=== PATIENT | male | born 1970 | race Caucasian/White ===

== ENCOUNTER 2019-10-16 21:03 | Emergency (ER) | payer OTHER ==
[~2019-10-16] VITALS: Ht 175.3 cm; Wt 136.0 kg
[~2019-10-16 21:03] MED LIST: ibuprofen PO
[2019-10-16 21:10] VITALS: BP 147/118
[2019-10-16] MEDS ORDERED: CefTRIAXone 1000mg IM Kit (w/lidocaine diluent) IM ONE (22:05)
[2019-10-16 22:06] LABS: CLARITY,URINE SLIGHTLY CLOUDY (Clear); COLOR,URINE YELLOW (Yellow); GLUCOSE, URINE NEGATIVE (Neg); KETONES,URINE TRACE mg/dl (Neg); LEUKOCYTE ESTERASE ,URINE SMALL (Neg); NITRITES, URINE NEGATIVE (Neg); OCCULT BLOOD,URINE MODERATE (Neg); PH,URINE 5.5 (4.8-8.0); PROTEIN,URINE 30 mg/dl (Neg)
[2019-10-16] MEDS ORDERED: FLO0.4C PO (22:08)
[2019-10-16] MEDS ORDERED: CEPH250T PO (22:08)
[2019-10-16] MEDS ORDERED: tamsulosin 0.4mg capsule PO ONE (22:10)
[2019-10-16 22:11] LABS: UA COLLECTION TYPE CLN CATCH MIDSTREAM
[2019-10-16 22:13] LABS: BACTERIA,URINE FEW /HPF (Neg); RENAL CELLS, URINE FEW /HPF; SQUAMOUS EPITHELIAL CELL,UR MODERATE /LPF (FEW); WBC CLUMPS,URINE FEW /HPF (NEGATIVE); WBC,URINE TNTC /HPF (0-4); YEAST MODERATE /HPF (NEGATIVE)
== END 2019-10-16 22:27 | disposition home or self-care (01) ==
LOC: ER 21:03
DX: N39.0 Urinary tract infection, site not specified (principal); R30.9 Painful micturition, unspecified; Z79.2 Long term (current) use of antibiotics; Z79.899 Other long term (current) drug therapy
CPT/HCPCS: 81001; 87088; 96372; 99283; J0696

== ENCOUNTER 2021-09-01 07:33 | Emergency (ER) | payer BC, OTHER ==
[~2021-09-01] VITALS: Ht 172.7 cm; Wt 143.2 kg
[2021-09-01 08:17] LABS: BASOPHILS # (AUTO) 0.1 X10'3 (0-0.2); BASOPHILS % (AUTO) 0.9 % (0-1); EOSINOPHILS # (AUTO) 0.2 X10'3 (0-0.9); EOSINOPHILS % (AUTO) 3.2 % (0-6); HEMATOCRIT 43.4 % (42.0-52.0); HEMOGLOBIN 15.1 g/dl (14.0-17.9); LYMPHOCYTES # (AUTO) 2.8 X10'3 (1.1-4.8); LYMPHOCYTES % (AUTO) 41.6 % (21-51); MEAN CORPUSCULAR HEMOGLOBIN 30.5 PG (27.0-31.0); MEAN CORPUSCULAR HGB CONC 34.8 g/dL (33.0-36.5); MEAN CORPUSCULAR VOLUME 87.6 FL (78-98); MEAN PLATELET VOLUME 8.2 FL (7.4-10.4); MONOCYTES # (AUTO) 0.8 X10'3 (0-0.9); MONOCYTES % (AUTO) 12.2 % (2-12); NEUTROPHILS # (AUTO) 2.8 X10'3 (1.8-7.7); NEUTROPHILS % (AUTO) 42.1 % (42-75); PLATELET COUNT 254 X10'3 (140-440); RED BLOOD COUNT 4.95 X10'6 (4.70-6.10); RED CELL DISTRIBUTION WIDTH 13.3 % (11.5-14.5); WHITE BLOOD COUNT 6.7 X10'3 (4.5-11.0)
[2021-09-01 08:31] LABS: ALANINE AMINOTRANSFERASE 71 U/L (12-78); ALBUMIN 4.1 G/DL (3.4-5.0); ALBUMIN/GLOBULIN RATIO 1.1 (1.1-1.5); ALKALINE PHOSPHATASE 65 IU/L (46-116); ANION GAP 12 (8-16); ASPARTATE AMINO TRANSFERASE 30 U/L (10-37); BILIRUBIN,TOTAL 0.6 MG/DL (0.1-1.0); BLOOD UREA NITROGEN 11 MG/DL (7-18); BUN/CREATININE RATIO 11.8 (5.4-32.0); CALCIUM 9.1 MG/DL (8.5-10.1); CHLORIDE 100 MMOL/L (99-107); CREATININE 0.93 MG/DL (0.60-1.10); GLUCOSE 285 MG/DL (70-104); POTASSIUM 3.3 MMOL/L (3.5-5.1); SODIUM 138 MMOL/L (135-145); TOTAL CARBON DIOXIDE 26.3 MMOL/L (24-32); TOTAL PROTEIN 7.9 G/DL (6.4-8.2); eGFR 86 ML/MIN
[2021-09-01 10:17] VITALS: BP 146/86
== END 2021-09-01 10:25 | disposition home or self-care (01) ==
LOC: ER 07:34 → EEVIPCON 07:34 → ER 10:25
DX: I10 Essential (primary) hypertension (principal); R07.89 Other chest pain; Z79.899 Other long term (current) drug therapy
CPT/HCPCS: 36415; 71045; 80053; 83880; 84484; 85025; 93005; 99285

== ENCOUNTER 2023-10-02 07:38 | Emergency (ER) | payer BC ==
[~2023-10-02] VITALS: Ht 172.7 cm; Wt 136.2 kg
[2023-10-02 07:46] VITALS: BP 165/92; PULSE 80; TEMP 98.1; O2SAT 98
[2023-10-02] MEDS ORDERED: PSEU-303 PO (09:11)
[2023-10-02] MEDS ORDERED: FLUT16SP2 BOTHNARES (09:11)
[2023-10-02] MEDS ORDERED: LEVO750T68 PO (09:11)
[2023-10-02 09:50] VITALS: RESP 16
== END 2023-10-02 09:53 | disposition home or self-care (01) ==
LOC: ER 07:38
DX: J32.9 Chronic sinusitis, unspecified (principal); I48.91 Unspecified atrial fibrillation; I10 Essential (primary) hypertension; E11.9 Type 2 diabetes mellitus without complications; Z72.89 Other problems related to lifestyle; Z79.899 Other long term (current) drug therapy; Z79.2 Long term (current) use of antibiotics
CPT/HCPCS: 99283

== ENCOUNTER 2023-12-01 11:17 | Emergency (ER) | payer BC ==
[~2023-12-01] VITALS: Ht 172.7 cm; Wt 139.3 kg
[~2023-12-01 11:17] MED LIST changes: +FLUT16SP2 BOTHNARES; +PSEU-303 PO
[2023-12-01 13:30] VITALS: BP 128/68; PULSE 78; RESP 14; TEMP 98.3; O2SAT 98
[2023-12-01] MEDS ORDERED: AMOX-580 PO (13:55)
[2023-12-01] MEDS ORDERED: PRED10TA23 PO (13:55)
== END 2023-12-01 13:31 | disposition home or self-care (01) ==
LOC: ER 11:17
DX: J32.9 Chronic sinusitis, unspecified (principal); I10 Essential (primary) hypertension; E11.9 Type 2 diabetes mellitus without complications; J32.0 Chronic maxillary sinusitis; Z79.899 Other long term (current) drug therapy
CPT/HCPCS: 70486; 99284

== ENCOUNTER 2025-02-18 10:17 | Outpatient (CLI) | payer BC ==
[2025-02-18 10:46] LABS: MEAN PLATELET VOLUME 7.4 FL (7.4-10.4); RED CELL DISTRIBUTION WIDTH 13.4 % (11.5-14.5)
[2025-02-18 11:14] LABS: CHOL/HDL RATIO 2.9 (0.00-4.99); CREATININE 0.85 MG/DL (0.60-1.10); LDL CHOLESTEROL 76 MG/DL (50-100); TOTAL CARBON DIOXIDE 29.2 MMOL/L (24-32); eGFR > 90 ML/MIN
[2025-02-19 11:16] LABS: % FREE PSA 26.7 % (.); PROSTATE SPECIFIC AG, SERUM 0.3 ng/mL (0.0-4.0)
[2025-02-19 15:11] LABS: CREATININE, URINE 223.8 mg/dL (Not Estab.); MICROALB/CRT, RATIO 11.0 mg/g creat (0-29); MICROALBUMIN,U,RANDOM 24.4 ug/mL (Not Estab.)
== END 2025-02-18 23:59 | disposition home or self-care (01) ==
LOC: RAD 10:17
PROVIDERS: ATTEND Physician Assistant
DX: E11.9 Type 2 diabetes mellitus without complications (principal); E78.5 Hyperlipidemia, unspecified; I10 Essential (primary) hypertension; Z12.5 Encounter for screening for malignant neoplasm of prostate
CPT/HCPCS: 36415; 80053; 80061; 82043; 82570; 83036; 84153; 84154; 84439; 84443; 85025